=== PATIENT | male | born 1975 | race Two or more races ===

== ENCOUNTER 2022-01-19 07:34 | Emergency (ER) | payer BC, OTHER ==
[~2022-01-19] VITALS: Ht 167.6 cm; Wt 90.7 kg
[2022-01-19 07:45] VITALS: BP 153/95
[2022-01-19] MEDS ORDERED: PROMETHAZINE HCL 25 MG/ML 1ML IM ONE (08:00)
[2022-01-19] MEDS ORDERED: KETOROLAC TROMETH 60MG/2ML VIAL IM ONE (08:00)
[2022-01-19] MEDS ORDERED: PROM25TA5 PO (08:59)
[2022-01-19] MEDS ORDERED: OMEP-335 PO (08:59)
== END 2022-01-19 09:08 | disposition home or self-care (01) ==
LOC: ER 07:34
DX: G43.909 Migraine, unspecified, not intractable, without status migrainosus (principal); T50.905A Adverse effect of unspecified drugs, medicaments and biological substances, initial encounter; F17.210 Nicotine dependence, cigarettes, uncomplicated; I10 Essential (primary) hypertension; Y92.89 Other specified places as the place of occurrence of the external cause
CPT/HCPCS: 70450; 96372; 99284; J1885; J2550

== ENCOUNTER 2022-03-05 02:42 | Emergency (ER) | payer OTHER ==
[~2022-03-05] VITALS: Ht 167.6 cm; Wt 95.3 kg
[~2022-03-05 02:42] MED LIST: OMEP-335 PO; PROM25TA5 PO
[2022-03-05 03:24] VITALS: BP 128/89
== END 2022-03-05 03:29 | disposition left against medical advice (07) ==
LOC: EDBD 02:42 → ER 02:51
DX: R10.12 Left upper quadrant pain (principal); R11.10 Vomiting, unspecified; Z53.21 Procedure and treatment not carried out due to patient leaving prior to being seen by health care provider